=== PATIENT | female | born 1995 | race Caucasian/White ===

== ENCOUNTER 2019-11-26 10:41 | Emergency (ER) | payer OTHER, SELFPAY ==
--- NOTE | ~2019-11-26 | XR_ITS ---
EXAMINATION: XR chest 1V portable DATE: 11/26/2019 12:11 INDICATION: Cough, shortness of breath and sore throat TECHNIQUE: frontal and lateral views of the chest were obtained. COMPARISON: Chest radiograph dated 06/22/2015 FINDINGS: The lungs remain clear with no focal airspace opacities, pulmonary edema, pleural effusion or pneumot horax. The cardiomediastinal silhouette is normal. Mild upper thoracic levocurvature. IMPRESSION: 1. No acute cardiopulmonary disease. Reviewed, dictated and finalized at location A.
[2019-11-26 11:08] VITALS: BP 125/84; PULSE 110; RESP 16; TEMP 37.7; O2SAT 100
[2019-11-26] MEDS: ACETAMINOPHEN 500 MG TABLET 1000 MG PO (12:32)
[2019-11-26 12:33] VITALS: RESP 20
--- NOTE | 2019-11-26 12:51 | ED.URI ---
HPI - URI/Sore Throat General Chief Complaint: Upper Respiratory Infection <NITIN Dobbins Last Filed: 11/26/19 12:57> Stated Complaint: Cough, SOB, Sore Throat <NITIN Dobbins Last Filed: 11/26/19 12:57> Time Seen by Provider: 11/26/19 11:27 <NITIN Dobbins Last Filed: 11/26/19 12:57> Source: patient <NITIN Dobbins Last Filed: 11/26/19 12:57> Mode of arrival: ambulatory <NITIN Dobbins Last Filed: 11/26/19 12:57> Limitations: no limitations <NITIN Dobbins Last Filed: 11/26/19 12:57> History of Present Illness HPI Narrative: Patient is a 24-year-old female who presents to emergency department with upper respiratory symptoms over the last several days noting that both of her children are also ill patient notes productive cough congestion rhinorrhea and sore throat. Patient notes today she felt more dyspneic with chest tightness. Patient was tested for COVID yesterday but does not have her results. Patient on arrival to emergency department is in the room in no distress. Denies any vomiting diarrhea <NITIN Dobbins Last Filed: 11/26/19 12:57> Related Data Home Medications: Home Medications Medication Instructions Recorded Confirmed albuterol sulfate 2 inh INHALATION Q4H PRN 11/26/19 albuterol sulfate 2.5 mg INHALATION Q4H PRN 11/26/19 azithromycin 250 mg PO DAILY 11/26/19 fluoxetine [Prozac] 20 mg PO DAILY 11/26/19 prednisone 20 mg PO DAILY 11/26/19 <NITIN Dobbins Last Filed: 11/26/19 12:57> Allergies/Adverse Reactions: Allergies Allergy/AdvReac Type Severity Reaction Status Date / Time aspirin Allergy Mild Wheezing Verified 11/26/19 11:15 chlorpheniramine Allergy Mild Hives Verified 11/26/19 11:15 dextromethorphan Allergy Mild Hives Verified 11/26/19 11:15 ibuprofen Allergy Mild Hives Verified 11/26/19 11:15 loratadine Allergy Mild Hives Verified 11/26/19 11:15 montelukast Allergy Mild Hives Verified 11/26/19 11:15 orange (food color) Allergy Mild ORANGE DYE Verified 11/26/19 11:15 pseudoephedrine Allergy Mild Hives Verified 11/26/19 11:15 tetracycline Allergy Mild Hives Verified 11/26/19 11:15 [place] Allergy Mild Hives Uncoded 11/26/19 11:15 <Faizan Cartwright PA-C - Last Filed: 11/26/19 12:57> Review of Systems Review of Systems: All systems reviewed & are unremarkable except as noted in HPI and below <Faizan Cartwright PA-C - Last Filed: 11/26/19 12:57> [facility] Past Medical History Medical History: Medical History (Updated 11/26/19 @ 12:57 by Faizan Cartwright PA-C) Asthma <Faizan Cartwright PA-C - Last Filed: 11/26/19 12:57> Social History Social History: Social History Smoking status: Never smoker <Faizan Cartwright PA-C - Last Filed: 11/26/19 12:57> Exam Narrative: Exam Narrative: GENERAL: Well-appearing, well-nourished, and in no acute distress. HEAD: Normocephalic, atraumatic. EYES: PERRLA and EOMI. ENT: Nares clear, no rhinorrhea or epistaxis. Mucous membranes moist. Oropharynx without tonsillar hypertrophy exudate or other lesions. CHEST: Clear to auscultation. No respiratory distress. No wheezes rales or rhonchi HEART: Regular rate and rhythm. No murmur heard. EXTREMITIES: Normal range of motion. No edema. SKIN: Warm, dry, no rash. NEURO: No focal deficits. Alert and oriented x3. PSYCH: Normal mood and affect. <Faizan Cartwright PA-C - Last Filed: 11/26/19 12:57> Course Course Emergency Course: Patient in the room in no distress resting comfortably no hypoxemia no pneumonia seen on exam COVID testing pending patient advised to continue to rest at home treat herself symptomatically provided with reasons to return <Faizan Cartwright PA-C - Last Filed: 11/26/19 12:57> Vital Signs Vital signs: Vital Signs Temperature 100 F H 11/26/19 11:08 Pulse Rate 110
[2019-11-26 13:30] VITALS: BP 107/77; PULSE 68; RESP 20; TEMP 36.9; O2SAT 99
== END 2019-11-26 13:30 | disposition home or self-care (01) ==
PROVIDERS: Emergency Provider General Practice
DX: J06.9 Acute upper respiratory infection, unspecified (principal); J45.909 Unspecified asthma, uncomplicated
CPT/HCPCS: 71045; 99283; A9270

== ENCOUNTER 2020-10-08 19:06 | Observation (INO) | payer OTHER, SELFPAY ==
[2020-10-08 19:13] VITALS: BP 138/95; PULSE 91
[2020-10-08 19:15] VITALS: BP 133/96; PULSE 80
[2020-10-08 19:25] VITALS: RESP 18; TEMP 36.6; BMI 23.3
[2020-10-08 19:32] VITALS: BP 122/88; PULSE 91
[2020-10-08] MEDS: ACETAMINOPHEN 500 MG TABLET 1000 MG PO (19:58)
--- NOTE | 2020-10-08 20:08 | OBADM ---
This patient, Rachel Johnson, admitted to the OB room OB Post [facility] for observation. Patient/family oriented to hospital policies and general routines including ID bracelet, bed and alarms, visiting hours, pain management, procedures, bathroom and other care routines, personal items, smoking policy, room service/diet, and visiting hours. Patient/Family are encouraged to report perceived risks to care and to ask questions if they do not understand what they are told or what they should do.
[2020-10-08 20:29] LABS: Add Urine Microscopic? YES; Appearance Urine Cloudy (Clear); Bacteria Urine Trace /hpf; Bilirubin Urine Negative (Negative); Blood Urine Negative (Negative); Color Urine Yellow (Yellow); Glucose Urine UA Negative (Negative); Ketones Urine Negative (Negative); Leukocyte Esterase Ur 1+ LEU/UL (Negative); Mucus Urine Rare /lpf; Nitrate Urine Negative (Negative); Protein Urine Negative (Negative); RBC Urine 0-2 /hpf (0-2); Specific Grav Ur 1.014 (1.001-1.035); Squamous Epithelial Cell Urine Few /hpf (Few); Urobilinogen Urine Negative mg/dL (<2.0); WBC Urine 0-3 /hpf
--- NOTE | 2020-10-13 21:20 | PM.OBTRLD ---
OB - Triage/Final Diagnosis Visit Information Date of evaluation: 10/08/20 Reason for evaluation: threatened labor Comments/Additional reasons for admission: I have assessed the risk for this patient, Rachel Johnson, and determined that she would benefit from observation care. Evaluation Laboratory results: Laboratory Tests 10/08/20 20:01 Urine Color Yellow Urine Appearance Cloudy H Urine pH 7.0 Ur Specific [place] 1.014 Urine Protein Negative Urine Glucose (UA) Negative Urine Ketones Negative Ur Blood (Man) Negative Urine Nitrate Negative Urine Bilirubin Negative Urine Urobilinogen Negative Leukocyte Esterase Rfl 1+ H Urine RBC 0-2 Urine WBC 0-3 Ur Squamous Epith Cells Few Urine Bacteria Trace Urine Mucus Rare
== END 2020-10-08 21:01 | disposition home or self-care (01) ==
PROVIDERS: Advanced Practice Midwife; Admitting Provider Obstetrics & Gynecology; Visit Provider Obstetrics & Gynecology
DX: O47.02 False labor before 37 completed weeks of gestation, second trimester (principal); Z3A.21 21 weeks gestation of pregnancy
CPT/HCPCS: 81001; A9270; G0378; G0379

== ENCOUNTER 2020-11-09 13:19 | Observation (INO) | payer OTHER, SELFPAY ==
--- NOTE | ~2020-11-09 | US_ITS ---
US OB limited DATE: 11/09/2020 12:58 INDICATION: Low abdominal pain TECHNIQUE: Real-time imaging and Doppler analysis COMPARISON: None FINDINGS: Live turner intrauterine gestation, fetus in vertex presentation, longitudinal lie, feta l heart rate of 131 bpm. Antral fundal placenta. No abnormal retroplacental fluid collection is identified. Subjectively aakash l amount of amniotic fluid. IMPRESSION: No significant abnormality demonstrated Reviewed, dictated and finalized at Location A. Reviewed, dictated and finalized at location A.
[2020-11-09 13:18] LABS: Add Urine Microscopic? YES; Appearance Urine Cloudy (Clear); Bacteria Urine Trace /hpf; Bilirubin Urine Negative (Negative); Blood Urine Negative (Negative); Color Urine Yellow (Yellow); Glucose Urine UA Negative (Negative); Ketones Urine Negative (Negative); Leukocyte Esterase Ur 3+ LEU/UL (Negative); Mucus Urine Rare /lpf; Nitrate Urine Negative (Negative); Protein Urine Negative (Negative); RBC Urine 0-2 /hpf (0-2); Specific Grav Ur 1.012 (1.001-1.035); Squamous Epithelial Cell Urine Rare /hpf (Few); Urobilinogen Urine Negative mg/dL (<2.0); WBC Urine 0-3 /hpf
[2020-11-09 13:19] VITALS: RESP 18; TEMP 36.7; BMI 24.5
--- NOTE | 2020-11-09 13:43 | OBADM ---
This patient, Rachel Johnson, admitted to the OB room for NST, then changed to observation. Patient oriented to hospital policies and general routines including ID bracelet, bed and alarms, visiting hours, pain management, procedures, bathroom and other care routines, personal items, smoking policy, room service/diet, call light and visiting hours. Patient is encouraged to report perceived risks to care and to ask questions if she does not understand what she is told or what she should do.
--- NOTE | 2020-11-28 10:10 | P.PNOB_ITS ---
OB - Triage/Final Diagnosis Visit Information Comments/Additional reasons for admission: I have assessed the risk for this patient, Rachel Johnson, and determined that she would benefit from observation care. Evaluation Laboratory results: Laboratory Tests 11/09/20 13:04 Urine Color Yellow Urine Appearance Cloudy H Urine pH 7.0 Ur Specific [place] 1.012 Urine Protein Negative Urine Glucose (UA) Negative Urine Ketones Negative Ur Blood (Man) Negative Urine Nitrate Negative Urine Bilirubin Negative Urine Urobilinogen Negative Leukocyte Esterase Rfl 3+ H Urine RBC 0-2 Urine WBC 0-3 Ur Squamous Epith Cells Rare Urine Bacteria Trace Urine Mucus Rare Final Diagnosis (1) Decreased movement: Code(s): O36.8190 - Decreased movements, unspecified trimester, not applicable or unspecified Status: Acute
== END 2020-11-09 13:42 | disposition home or self-care (01) ==
LOC: ANHOBOP 13:51 → ANHOBPP 13:52
PROVIDERS: Advanced Practice Midwife; Admitting Provider Obstetrics & Gynecology; Visit Provider Obstetrics & Gynecology
DX: O36.8120 Decreased fetal movements, second trimester, not applicable or unspecified (principal); Z3A.25 25 weeks gestation of pregnancy
CPT/HCPCS: 59025; 76815; 81001; 87086; 87088; 99199

== ENCOUNTER 2020-11-18 18:03 | Outpatient (CLI) | payer OTHER, SELFPAY ==
[2020-11-18] VITALS (44 sets, daily range): BP systolic 109–123; BP diastolic 70–87; PULSE 92–120; TEMP 36.9; O2SAT 92–100; BMI 24.5
--- NOTE | 2020-11-18 18:42 | PC.NURSE ---
Spoke with Dr. Valdivia- informed of pt admission for headache and dizziness that started this am. pt took tylenol around 1400 with no relief. c/o blurry vision, no right upper quadrant pain. orders received for PIH labs and UA. will call with results when available.
[2020-11-18 19:14] LABS: Basophils Percent Auto 0.2 % (0.2-1.2); Eosinophils Absolute Auto 0.2 K/mm3 (0-0.3); Eosinophils Percent Auto 1.8 % (0-4.4); Hematocrit 29.2 % (37.0-47.0); Immature Granulocyte Absolute 0.06 K/mm3 (0.00-0.031); Immature Granulocyte Percent A 0.5 % (0-0.5); Lymphocytes Absolute Auto 1.91 K/mm3 (0.9-3.2); Lymphocytes Percent Auto 14.9 % (18.3-44.2); Mean Corpuscular HGB Conc 30.8 g/dl (32-36); Mean Corpuscular Hemoglobin 25.9 pg (26-34); Mean Corpuscular Volume 83.9 fl (80-100); Monocytes Percent Auto 7.9 % (2.6-8.5); Neutrophils Absolute Auto 9.6 K/mm3 (1.3-6.7); Neutrophils Percent Auto 74.7 % (45.5-73.1); Platelet Count Result 190 k/mm3 (150-375); Red Blood Count 3.48 M/mm3 (4.2-5.4); Red Cell Distribution Width 13.7 % (11.5-14.5); White Blood Count 12.8 K/mm3 (4.5-10.0)
[2020-11-18 19:24] LABS: Add Urine Microscopic? YES; Appearance Urine Cloudy (Clear); Bacteria Urine Trace /hpf; Bilirubin Urine Negative (Negative); Blood Urine Negative (Negative); Color Urine Yellow (Yellow); Glucose Urine UA Negative (Negative); Ketones Urine Trace mg/dL (Negative); Leukocyte Esterase Ur 2+ LEU/UL (NEGATIVE); Mucus Urine Rare /lpf; Nitrate Urine Negative (Negative); Protein Urine Negative (Negative); RBC Urine 0-2 /hpf (0-2); Specific Grav Ur 1.012 (1.001-1.035); Squamous Epithelial Cell Urine Moderate /hpf (Few); Urobilinogen Urine Negative mg/dL (<2.0)
[2020-11-18 19:27] LABS: Alanine Aminotransferase 8 U/L (4-35); Albumin Level 3.2 g/dL (3.5-5.1); Alkaline Phosphatase 82 U/L (38-126); Anion Gap 7 mmol/L (8-16); Aspartate Amino Transferase 15 U/L (14-36); Bilirubin,Total 0.2 mg/dL (0.2-1.3); Blood Urea Nitrogen 5 mg/dL (7-17); Calcium 8.5 mg/dL (8.4-10.2); Carbon Dioxide 21 mmol/L (22-30); Chloride 104 mmol/L (98-107); Estimated Glomerular Filt Rate > 60; Glucose 84 mg/dL (65-110); Potassium 3.5 mmol/L (3.4-5.0); Sodium 132 mmol/L (137-145); Uric Acid 3.2 mg/dL (2.5-7.5)
[2020-11-18 19:28] LABS: Creatinine Urine 75.6 mg/dL; Total Protein Urine Random 13 mg/dL; Ur Ttl Prot Creatinine Ratio 0.17 mg/mg (0-0.20)
--- NOTE | 2020-11-18 19:45 | PC.NURSE ---
Spoke with Dr. Valdivia- reviewed labs. pt c/o 08/09 frontal TY that is sharp. order received Fiorocet for headache. will monitor and if headache is relieved with medicine pt may d/c home.
--- NOTE | 2020-11-18 21:07 | LDADM ---
This patient, Rachel Johnson, was admitted to [facility] on at 18:03. Plans for labor, pain management and were discussed with patient. Patient/family oriented to hospital policies and general routines including ID bracelet, bed and alarms, visiting hours, pain management, procedures, bathroom and other care routines, personal items, smoking policy, room service/diet and guest tray routines, infant security routines, and visiting hours. Patient/Family are encouraged to report perceived risks to care and to ask questions if they do not understand what they are told or what they should do. See OBIX for further documentation.
== END 2020-11-18 23:09 | disposition home or self-care (01) ==
LOC: ANHOBOP 18:09 → ANHOBPP 21:11 → ANHLDR 11-19 06:37
PROVIDERS: Obstetrics & Gynecology; Referring Provider Advanced Practice Midwife; Visit Provider Advanced Practice Midwife
DX: R42 Dizziness and giddiness (principal)
CPT/HCPCS: 36415; 80053; 81001; 82570; 84156; 84550; 85025; 87086; 99199; A9270

== ENCOUNTER 2020-12-07 11:17 | Outpatient (CLI) | payer OTHER, SELFPAY ==
--- NOTE | ~2020-12-07 | US_ITS ---
EXAMINATION: US OB limited EXAM DATE: 12/07/2020 13:23 INDICATION: , vaginal spotting, check placenta. 3rd trimester. TECHNIQUE: Pelvic obstetrical transabdominal sonogram was performed by a technologist. There are mu ltiple grayscale and Doppler images available for interpretation. Comparison is made to prior examina tion from 11/09/2020. FINDINGS: There is a single fetus identified in vertex presentation with a heart rate of 132 beats pe r minute. The placenta is located in the anterior fundal position. Placental margin to internal cervi lia os is over 10 cm. Along the inferior margin of the placenta there is focal hypoechoic retroplacental region measuring 1 .2 cm in thickness by 2.5 cm in diameter. Appearance is could indicate retroplacental hemorrhage. The re is another smaller anechoic retroplacental region in a different location measuring about 1 cm emy meter, also could be small retroplacental hemorrhage. Venous lakes are in the differential diagnosis. These are not specifically visualized on the prior study. IMPRESSION: 1. 2 small retroplacental regions, possible retroplacental hemorrhages. Venous lakes not excludable. 2. Live gestation, heart rate 132 bpm. I discussed these results with OB nurse caring for patient at 12/07/2020 13:37 CDT. Reviewed, dictated and finalized at location A. IMPRESSION: 1. 2 small retroplacental regions, possible retroplacental hemorrhages. Venous lakes not excludable. 2. Live gestation, heart rate 132 bpm. I discussed these results with OB nurse caring for patient at 12/07/2020 13:37 CD T.
[2020-12-07 11:50] VITALS: BP 120/72; PULSE 100
[2020-12-07 12:01] VITALS: BP 114/70; PULSE 100
[2020-12-07 12:04] LABS: Basophils Percent Auto 0.3 % (0.2-1.2); Eosinophils Absolute Auto 0.2 K/mm3 (0-0.3); Eosinophils Percent Auto 1.7 % (0-4.4); Hematocrit 29.5 % (37.0-47.0); Hemoglobin 9.1 g/dL (12.0-15.0); Immature Granulocyte Absolute 0.09 K/mm3 (0.00-0.031); Immature Granulocyte Percent A 0.8 % (0-0.5); Lymphocytes Absolute Auto 1.71 K/mm3 (0.9-3.2); Lymphocytes Percent Auto 14.5 % (18.3-44.2); Mean Corpuscular HGB Conc 30.8 g/dl (32-36); Mean Corpuscular Hemoglobin 24.7 pg (26-34); Mean Corpuscular Volume 79.9 fl (80-100); Mean Platelet Volume 12.6 fl (7.4-10.4); Monocytes Absolute Auto 0.9 K/mm3 (0.1-0.6); Monocytes Percent Auto 7.6 % (2.6-8.5); Neutrophils Absolute Auto 8.9 K/mm3 (1.3-6.7); Neutrophils Percent Auto 75.1 % (45.5-73.1); Platelet Count Result 198 k/mm3 (150-375); Red Blood Count 3.69 M/mm3 (4.2-5.4); Red Cell Distribution Width 15.1 % (11.5-14.5); White Blood Count 11.8 K/mm3 (4.5-10.0)
[2020-12-07 12:13] LABS: Add Urine Microscopic? YES; Appearance Urine Cloudy (Clear); Bacteria Urine Trace /hpf; Bilirubin Urine Negative (Negative); Blood Urine Negative (Negative); Color Urine Yellow (Yellow); Glucose Urine UA Negative (Negative); Ketones Urine Negative (Negative); Leukocyte Esterase Ur 1+ LEU/UL (NEGATIVE); Mucus Urine Rare /lpf; Nitrate Urine Negative (Negative); Protein Urine Negative (Negative); Specific Grav Ur 1.016 (1.001-1.035); Squamous Epithelial Cell Urine Many /hpf (Few); Urobilinogen Urine Negative mg/dL (<2.0)
[2020-12-07 12:16] VITALS: BP 126/69; PULSE 101
[2020-12-07 12:31] VITALS: BP 121/72; PULSE 94
[2020-12-07 12:35] VITALS: BP 120/72; PULSE 100; RESP 16; TEMP 36.9
[2020-12-07 12:40] LABS: Alanine Aminotransferase 9 U/L (4-35); Albumin Level 3.4 g/dL (3.5-5.1); Alkaline Phosphatase 104 U/L (38-126); Anion Gap 8 mmol/L (8-16); Aspartate Amino Transferase 17 U/L (14-36); Bilirubin,Total 0.3 mg/dL (0.2-1.3); Blood Urea Nitrogen 6 mg/dL (7-17); Calcium 8.9 mg/dL (8.4-10.2); Carbon Dioxide 19 mmol/L (22-30); Chloride 108 mmol/L (98-107); Estimated Glomerular Filt Rate > 60; Glucose 96 mg/dL (65-110); Potassium 3.6 mmol/L (3.4-5.0); Sodium 135 mmol/L (137-145); Uric Acid 4.5 mg/dL (2.5-7.5)
[2020-12-07 12:48] LABS: Total Protein Urine Random 11 mg/dL
--- NOTE | 2020-12-07 13:55 | PCDIET ---
called Charly Sosa CNM with PIH lab result, BP, NST and ultrasound report. made aware for possible retroplacental hemorrhage. okay to discharge with follow up tomorrow in office
== END 2020-12-07 14:00 | disposition home or self-care (01) ==
LOC: ANHOBOP 11:28 → ANHOBPP 11:29
PROVIDERS: Visit Provider Advanced Practice Midwife
DX: O13.9 Gestational [pregnancy-induced] hypertension without significant proteinuria, unspecified trimester (principal); Z3A.00 Weeks of gestation of pregnancy not specified
CPT/HCPCS: 36415; 59025; 76815; 80053; 81001; 82570; 84156; 84550; 85025; 87086; 99199

== ENCOUNTER 2020-12-14 19:55 | Observation (INO) | payer OTHER, SELFPAY ==
[2020-12-14] VITALS (10 sets, daily range): BP systolic 113–138; BP diastolic 70–124; PULSE 95–124; RESP 16–18; TEMP 36.9; BMI 25.6
--- NOTE | 2020-12-14 19:55 | OBADM ---
This patient, Rachel Johnson, admitted to the OB room [facility] Post 113 for observation. Patient/family oriented to hospital policies and general routines including ID bracelet, bed and alarms, visiting hours, pain management, procedures, bathroom and other care routines, personal items, smoking policy, room service/diet, and visiting hours. Patient/Family are encouraged to report perceived risks to care and to ask questions if they do not understand what they are told or what they should do.
[2020-12-14 21:03] LABS: Add Urine Microscopic? YES; Amorphous Sediment Urine Few; Appearance Urine Clear (Clear); Bacteria Urine Trace /hpf; Bilirubin Urine Negative (Negative); Blood Urine Negative (Negative); Color Urine Yellow (Yellow); Glucose Urine UA Negative (Negative); Ketones Urine Negative (Negative); Leukocyte Esterase Ur 2+ LEU/UL (Negative); Mucus Urine Rare /lpf; Nitrate Urine Negative (Negative); Protein Urine 1+ mg/dL (Negative); RBC Urine 0-2 /hpf (0-2); Specific Grav Ur 1.013 (1.001-1.035); Squamous Epithelial Cell Urine Few /hpf (Few); Urobilinogen Urine Negative mg/dL (<2.0); WBC Urine 0-3 /hpf
[2020-12-14] MEDS: ACETAMINOPHEN 500 MG TABLET 1000 MG PO (22:18)
--- NOTE | 2021-01-08 19:46 | P.PNOB_ITS ---
OB - Triage/Final Diagnosis Visit Information Comments/Additional reasons for admission: I have assessed the risk for this patient, Rachel Johnson, and determined that she would benefit from observation care. Evaluation Laboratory results: Laboratory Tests 12/14/20 20:52 Urine Color Yellow Urine Appearance Clear Urine pH 7.0 Ur Specific [place] 1.013 Urine Protein 1+ H Urine Glucose (UA) Negative Urine Ketones Negative Ur Blood (Man) Negative Urine Nitrate Negative Urine Bilirubin Negative Urine Urobilinogen Negative Leukocyte Esterase Rfl 2+ H Urine RBC 0-2 Urine WBC 0-3 Ur Squamous Epith Cells Few Amorphous Sediment Few H Urine Bacteria Trace Urine Mucus Rare Final Diagnosis (1) False labor: Code(s): O47.9 - False labor, unspecified Status: Acute
== END 2020-12-14 22:20 | disposition home or self-care (01) ==
PROVIDERS: Admitting Provider Obstetrics & Gynecology; Visit Provider Obstetrics & Gynecology
DX: O47.9 False labor, unspecified (principal); Z3A.00 Weeks of gestation of pregnancy not specified
CPT/HCPCS: 81001; A9270; G0378; G0379

== ENCOUNTER 2021-01-01 21:44 | Observation (INO) | payer OTHER, SELFPAY ==
[2021-01-01 22:30] VITALS: BP 116/78; PULSE 99; TEMP 36.9
[2021-01-01 22:45] VITALS: BP 119/78; PULSE 101
[2021-01-01 23:00] VITALS: BP 114/85; PULSE 103
[2021-01-01] MEDS: LACTATED RINGERS 1,000 ML 999 ML IV CONT (23:10)
[2021-01-01 23:15] VITALS: BP 121/93; PULSE 111
--- NOTE | 2021-01-01 23:18 | PM.IMHP ---
H&P: HPI History of Present Illness Date/Time: 01/01/21 23:18 Chief Complaint: pt is a 25 y.o. G 4 P2 edc 02/16 at 33.3 weeks with hx of 33 week delivery and hx of severe preeclampsia. c/o abdominal pain started this evening as well as low back pain, constant, does not feel like contractions, accompanied by nausea PMFSH Past Medical History Medical History (Updated 11/28/20 @ 10:10 by Lidya Sosa CNM) Asthma Social History Social History Smoking status: Never smoker Meds Home Medications and Allergies Home Medications Medication Instructions Recorded Confirmed Type albuterol sulfate 2 inh INHALATION Q4H PRN 11/26/19 10/08/20 History albuterol sulfate 2.5 mg INHALATION Q4H PRN 11/26/19 10/08/20 History iron 18 mg PO DAILY 12/14/20 12/14/20 History vit-ferrous sulfat-FA 1 tablet PO QAM 12/14/20 12/14/20 History Allergies Allergy/AdvReac Type Severity Reaction Status Date / Time aspirin Allergy Mild Wheezing Verified 11/26/19 11:15 chlorpheniramine Allergy Mild Hives Verified 11/26/19 11:15 dextromethorphan Allergy Mild Hives Verified 11/26/19 11:15 ibuprofen Allergy Mild Hives Verified 11/26/19 11:15 loratadine Allergy Mild Hives Verified 11/26/19 11:15 montelukast Allergy Mild Hives Verified 11/26/19 11:15 orange (food color) Allergy Mild ORANGE DYE Verified 11/26/19 11:15 pseudoephedrine Allergy Mild Hives Verified 11/26/19 11:15 tetracycline Allergy Mild Hives Verified 11/26/19 11:15 [place] Allergy Mild Hives Uncoded 11/26/19 11:15 Vital Signs Vital Signs - 24 hr 01/01/21 22:30 01/01/21 22:45 01/01/21 23:00 Pulse Rate 99 101 H 103 H Blood Pressure 116/78 119/78 114/85 01/01/21 23:15 Pulse Rate 111 H Blood Pressure 121/93 H
[2021-01-01] MEDS: CYCLOBENZAPRINE HCL 10 MG TABLET PO (23:23)
[2021-01-01 23:26] LABS: Add Urine Microscopic? YES; Appearance Urine Clear (Clear); Bacteria Urine Trace /hpf; Bilirubin Urine Negative (Negative); Blood Urine Negative (Negative); Color Urine Straw (Yellow); Glucose Urine UA Negative (Negative); Ketones Urine Negative (Negative); Leukocyte Esterase Ur Trace LEU/UL (Negative); Nitrate Urine Negative (Negative); Protein Urine Negative (Negative); RBC Urine 0-2 /hpf (0-2); Specific Grav Ur 1.005 (1.001-1.035); Squamous Epithelial Cell Urine Rare /hpf (Few); Urobilinogen Urine Negative mg/dL (<2.0); WBC Urine 0-3 /hpf
[2021-01-01] MEDS: ONDANSETRON INJ 4 MG/2 ML VIAL IV PUSH (23:26)
--- NOTE | 2021-01-01 23:26 | PM.IMHP ---
H&P: HPI History of Present Illness Date/Time: 01/01/21 23:26 Chief Complaint: abdominal and back pain Review of Systems Review of Systems: All systems reviewed & are unremarkable except as noted in HPI and below [facility] Past Medical History Medical History (Updated 11/28/20 @ 10:10 by Lidya Sosa CNM) Asthma Social History Social History Smoking status: Never smoker Meds Home Medications and Allergies Home Medications Medication Instructions Recorded Confirmed Type albuterol sulfate 2 inh INHALATION Q4H PRN 11/26/19 10/08/20 History albuterol sulfate 2.5 mg INHALATION Q4H PRN 11/26/19 10/08/20 History iron 18 mg PO DAILY 12/14/20 12/14/20 History vit-ferrous sulfat-FA 1 tablet PO QAM 12/14/20 12/14/20 History Allergies Allergy/AdvReac Type Severity Reaction Status Date / Time aspirin Allergy Mild Wheezing Verified 11/26/19 11:15 chlorpheniramine Allergy Mild Hives Verified 11/26/19 11:15 dextromethorphan Allergy Mild Hives Verified 11/26/19 11:15 ibuprofen Allergy Mild Hives Verified 11/26/19 11:15 loratadine Allergy Mild Hives Verified 11/26/19 11:15 montelukast Allergy Mild Hives Verified 11/26/19 11:15 orange (food color) Allergy Mild ORANGE DYE Verified 11/26/19 11:15 pseudoephedrine Allergy Mild Hives Verified 11/26/19 11:15 tetracycline Allergy Mild Hives Verified 11/26/19 11:15 [place] Allergy Mild Hives Uncoded 11/26/19 11:15 Vital Signs Vital Signs - 24 hr 01/01/21 22:30 01/01/21 22:45 01/01/21 23:00 Pulse Rate 99 101 H 103 H Blood Pressure 116/78 119/78 114/85 01/01/21 23:15 Pulse Rate 111 H Blood Pressure 121/93 H Exam Const: General: cooperative and healthy appearing : External Female Exam: normal external appearance Speculum Exam - Vagina: normal appearance of the vagina Other: SVE 1-2/50/-3 Skin: General skin exam: normal color Neuro: General: patient oriented x3 Sensory Exam: normal sensation Extrem: General: normal to inspection Right lower extremity: normal to inspection Left lower extremity: normal to inspection Psych: Appearance: grossly normal Affect: normal affect Attitude: cooperative Thought process: Normal thought process present Insight: Good insight present (Psych) Judgement: Good judgement present (Psych) Assessment and Plan Additional Plan 1. back and abdominal pain 2. FHT Reactive, contractions rare plan UA and labs, Flexeril, betamethasone, FFN sent
[2021-01-01 23:27] LABS: Basophils Percent Auto 0.3 % (0.2-1.2); Eosinophils Absolute Auto 0.3 K/mm3 (0-0.3); Eosinophils Percent Auto 2.6 % (0-4.4); Hematocrit 27.2 % (37.0-47.0); Hemoglobin 8.3 g/dL (12.0-15.0); Immature Granulocyte Absolute 0.07 K/mm3 (0.00-0.031); Immature Granulocyte Percent A 0.6 % (0-0.5); Lymphocytes Absolute Auto 2.21 K/mm3 (0.9-3.2); Lymphocytes Percent Auto 20.5 % (18.3-44.2); Mean Corpuscular HGB Conc 30.5 g/dl (32-36); Mean Corpuscular Hemoglobin 22.8 pg (26-34); Mean Corpuscular Volume 74.7 fl (80-100); Mean Platelet Volume 11.3 fl (7.4-10.4); Monocytes Percent Auto 9.3 % (2.6-8.5); Neutrophils Absolute Auto 7.2 K/mm3 (1.3-6.7); Neutrophils Percent Auto 66.7 % (45.5-73.1); Platelet Count Result 226 k/mm3 (150-375); Red Blood Count 3.64 M/mm3 (4.2-5.4); Red Cell Distribution Width 16.3 % (11.5-14.5); White Blood Count 10.8 K/mm3 (4.5-10.0)
[2021-01-01] MEDS: FAMOTIDINE 20 MG/2 ML VIAL IV PUSH (23:27)
[2021-01-01 23:32] VITALS: BP 115/78; PULSE 91
[2021-01-01 23:32] LABS: Alanine Aminotransferase 9 U/L (4-35); Albumin Level 3.3 g/dL (3.5-5.1); Alkaline Phosphatase 140 U/L (38-126); Anion Gap 6 mmol/L (8-16); Aspartate Amino Transferase 17 U/L (14-36); Bilirubin,Total 0.3 mg/dL (0.2-1.3); Blood Urea Nitrogen 7 mg/dL (7-17); Calcium 9.1 mg/dL (8.4-10.2); Carbon Dioxide 21 mmol/L (22-30); Chloride 106 mmol/L (98-107); Estimated Glomerular Filt Rate > 60; Glucose 106 mg/dL (65-110); Potassium 3.6 mmol/L (3.4-5.0); Sodium 133 mmol/L (137-145)
[2021-01-01] MEDS: BETAMETHASONE SOD PHOS/ACETATE 30 MG/5 ML VIAL 12 MG IM (23:32)
[2021-01-01 23:33] LABS: Fetal Fibronectin Negative
[2021-01-01 23:45] VITALS: BP 126/86; PULSE 96
[2021-01-02] VITALS (26 sets, daily range): BP systolic 99–123; BP diastolic 53–84; PULSE 76–107; TEMP 36.7
--- NOTE | 2021-01-02 00:16 | LDADM ---
This patient, Rachel Johnson, was admitted to OB Post 117 on 01/01/21 at 21:44. Plans for labor, pain management and were discussed with patient. Patient/family oriented to hospital policies and general routines including ID bracelet, bed and alarms, visiting hours, pain management, procedures, bathroom and other care routines, personal items, smoking policy, room service/diet and guest tray routines, infant security routines, and visiting hours. Patient/Family are encouraged to report perceived risks to care and to ask questions if they do not understand what they are told or what they should do. See OBIX for further documentation.
[2021-01-02] MEDS: ACETAMINOPHEN 500 MG TABLET 1000 MG PO (00:51)
--- NOTE | 2021-01-02 08:21 | PC.NURSE ---
Updated Ronnell Vela CNM on maternal and assessment throughout the night. Discharge order received.
== END 2021-01-02 08:30 | disposition home or self-care (01) ==
PROVIDERS: Advanced Practice Midwife; Admitting Provider Obstetrics & Gynecology; Visit Provider Obstetrics & Gynecology
DX: O26.893 Other specified pregnancy related conditions, third trimester (principal); R10.9 Unspecified abdominal pain; O99.891 Other specified diseases and conditions complicating pregnancy; M54.9 Dorsalgia, unspecified; O99.513 Diseases of the respiratory system complicating pregnancy, third trimester; J45.909 Unspecified asthma, uncomplicated; Z3A.33 33 weeks gestation of pregnancy; Z79.51 Long term (current) use of inhaled steroids
CPT/HCPCS: 36415; 80053; 81001; 82731; 85025; 96372; 96374; 96375; A9270; G0378; G0379; J0702; J2405; J7120

== ENCOUNTER 2021-01-02 19:38 | Outpatient (CLI) | payer OTHER, SELFPAY ==
[2021-01-02] MEDS: BETAMETHASONE SOD PHOS/ACETATE 30 MG/5 ML VIAL 12 MG IM (19:49)
== END 2021-01-02 19:52 | disposition home or self-care (01) ==
LOC: ANHOBOP 19:43
PROVIDERS: Visit Provider Obstetrics & Gynecology
DX: O36.8990 Maternal care for other specified fetal problems, unspecified trimester, not applicable or unspecified (principal); Z3A.00 Weeks of gestation of pregnancy not specified
CPT/HCPCS: 96372; J0702

== ENCOUNTER 2021-01-03 17:47 | Observation (INO) | payer OTHER, SELFPAY ==
[2021-01-03] VITALS (9 sets, daily range): BP systolic 123–137; BP diastolic 73–86; PULSE 79–97; TEMP 36.8–37.5; BMI 25.7
[2021-01-03] MEDS: ONDANSETRON HCL ODT 4 MG TABLET PO (19:46)
[2021-01-03 20:02] LABS: Basophils Percent Auto 0.1 % (0.2-1.2); Eosinophils Percent Auto 0.1 % (0-4.4); Hemoglobin 8.3 g/dL (12.0-15.0); Immature Granulocyte Absolute 0.36 K/mm3 (0.00-0.031); Immature Granulocyte Percent A 2.2 % (0-0.5); Lymphocytes Percent Auto 9.7 % (18.3-44.2); Mean Corpuscular HGB Conc 29.6 g/dl (32-36); Mean Corpuscular Hemoglobin 22.8 pg (26-34); Mean Corpuscular Volume 76.9 fl (80-100); Mean Platelet Volume 11.8 fl (7.4-10.4); Monocytes Absolute Auto 1.7 K/mm3 (0.1-0.6); Monocytes Percent Auto 10.5 % (2.6-8.5); Neutrophils Absolute Auto 12.9 K/mm3 (1.3-6.7); Neutrophils Percent Auto 77.4 % (45.5-73.1); Nucleated Red Blood Cells Absolute Auto 0.1 K/mm3 (0.0-0.012); Nucleated Red Blood Cells Perc 0.3 % (0.0-0.2); Platelet Count Result 231 k/mm3 (150-375); Red Blood Count 3.64 M/mm3 (4.2-5.4); Red Cell Distribution Width 16.5 % (11.5-14.5); White Blood Count 16.6 K/mm3 (4.5-10.0)
[2021-01-03 20:10] LABS: Add Urine Microscopic? YES; Amorphous Sediment Urine Few; Appearance Urine Cloudy (Clear); Bacteria Urine Trace /hpf; Bilirubin Urine Negative (Negative); Blood Urine Negative (Negative); Color Urine Yellow (Yellow); Glucose Urine UA Negative (Negative); Ketones Urine Negative (Negative); Leukocyte Esterase Ur 1+ LEU/UL (NEGATIVE); Nitrate Urine Negative (Negative); Protein Urine Negative (Negative); RBC Urine 0-2 /hpf (0-2); Specific Grav Ur 1.011 (1.001-1.035); Squamous Epithelial Cell Urine Few /hpf (Few); Urobilinogen Urine Negative mg/dL (<2.0); WBC Urine 0-3 /hpf (0-3)
[2021-01-03 20:13] LABS: Hypochromasia 1+ (NORMAL); Ovalocytes 1+ (NORMAL); Platelet Estimate Adequate (Adequate)
[2021-01-03 20:20] LABS: Alanine Aminotransferase 11 U/L (4-35); Albumin Level 3.5 g/dL (3.5-5.1); Alkaline Phosphatase 156 U/L (38-126); Anion Gap 7 mmol/L (8-16); Aspartate Amino Transferase 19 U/L (14-36); Bilirubin,Total 0.3 mg/dL (0.2-1.3); Blood Urea Nitrogen 6 mg/dL (7-17); Calcium 8.6 mg/dL (8.4-10.2); Carbon Dioxide 23 mmol/L (22-30); Chloride 108 mmol/L (98-107); Estimated Glomerular Filt Rate > 60; Glucose 121 mg/dL (65-110); Potassium 3.8 mmol/L (3.4-5.0); Sodium 138 mmol/L (137-145); Uric Acid 4.6 mg/dL (2.5-7.5)
[2021-01-03 20:34] LABS: Creatinine Urine 59.4 mg/dL; Total Protein Urine Random 23 mg/dL; Ur Ttl Prot Creatinine Ratio 0.39 mg/mg (0-0.20)
--- NOTE | 2021-01-03 21:19 | PC.NURSE ---
jay liao cnm notified, report given, orders received. have pt completed 24 hour urine, jay liao cnm informed pt requesting to go home. orders to offer her to stay overnight, but may d/c home if pt requests.
--- NOTE | 2021-01-03 21:30 | PC.NURSE ---
informed pt of plan of care, pt requesting to be d/c home.
--- NOTE | 2021-01-25 07:51 | PM.OBTRLD ---
OB - Triage/Final Diagnosis Visit Information Comments/Additional reasons for admission: I have assessed the risk for this patient, Rachel Johnson, and determined that she would benefit from observation care. Evaluation Laboratory results: Laboratory Tests 01/03/21 01/03/21 01/03/21 19:53 19:53 19:53 WBC 16.6 H RBC 3.64 L Hgb 8.3 L Hct 28.0 L MCV 76.9 L MCH 22.8 L MCHC 29.6 L RDW 16.5 H Plt Count 231 MPV 11.8 H Immature Gran % (Auto) 2.2 H Neut % (Auto) 77.4 H Lymph % (Auto) 9.7 L [place] % (Auto) 10.5 H Eos % (Auto) 0.1 Baso % (Auto) 0.1 L Lymph # (Auto) 1.60 [place] # (Auto) 1.7 H Eos # (Auto) 0.0 Baso # (Auto) 0.0 Abs Immat Gran (auto) 0.36 H Absolute Neuts (auto) 12.9 H Absolute Nucleated RBC 0.1 H Nucleated RBC % 0.3 H Platelet Estimate Adequate Hypochromasia 1+ Ovalocytes 1+ Sodium Potassium Chloride Carbon Dioxide Anion Gap BUN Creatinine Estim Creat Clear Calc Estimated GFR Glucose Uric Acid Calcium Total Bilirubin AST ALT Alkaline Phosphatase Total Protein Albumin Urine Color Yellow Urine Appearance Cloudy H Urine pH 7.0 Ur Specific [place] 1.011 Urine Protein Negative Urine Glucose (UA) Negative Urine Ketones Negative Ur Blood (Man) Negative Urine Nitrate Negative Urine Bilirubin Negative Urine Urobilinogen Negative Ur Leukocyte Esterase 1+ H Urine RBC 0-2 Urine WBC 0-3 Ur Squamous Epith Cells Few Amorphous Sediment Few H Urine Bacteria Trace U Random Total Protein 23 Urine Creatinine 59.4 Protein/Creat Ratio 2 0.39 H 01/03/21 19:53 WBC RBC Hgb Hct MCV MCH MCHC RDW Plt Count MPV Immature Gran % (Auto) Neut % (Auto) Lymph % (Auto) [place] % (Auto) Eos % (Auto) Baso % (Auto) Lymph # (Auto) [place] # (Auto) Eos # (Auto) Baso # (Auto) Abs Immat Gran (auto) Absolute Neuts (auto) Absolute Nucleated RBC Nucleated RBC % Platelet Estimate Hypochromasia Ovalocytes Sodium 138 Potassium 3.8 Chloride 108 H Carbon Dioxide 23 Anion Gap 7 L BUN 6 L Creatinine 0.70 Estim Creat Clear Calc Not Reportable Estimated GFR > 60 Glucose 121 H Uric Acid 4.6 Calcium 8.6 Total Bilirubin 0.3 AST 19 ALT 11 Alkaline Phosphatase 156 H Total Protein 6.0 L Albumin 3.5 Urine Color Urine Appearance Urine pH Ur Specific [place] Urine Protein Urine Glucose (UA) Urine Ketones Ur Blood (Man) Urine Nitrate Urine Bilirubin Urine Urobilinogen Ur Leukocyte Esterase Urine RBC Urine WBC Ur Squamous Epith Cells Amorphous Sediment Urine Bacteria U Random Total Protein Urine Creatinine Protein/Creat Ratio 2 Final Diagnosis (1) Headache: Code(s): R51.9 - Headache, unspecified Status: Acute
== END 2021-01-03 21:49 | disposition home or self-care (01) ==
PROVIDERS: Admitting Provider Obstetrics & Gynecology; Referring Provider Advanced Practice Midwife; Visit Provider Obstetrics & Gynecology
DX: O99.891 Other specified diseases and conditions complicating pregnancy (principal); R51.9 Headache, unspecified; Z3A.33 33 weeks gestation of pregnancy
CPT/HCPCS: 36415; 80053; 81001; 82570; 84156; 84550; 85025; 87086; 87088; A9270; G0378; G0379

== ENCOUNTER 2021-01-04 07:19 | Inpatient (IN) | payer OTHER, SELFPAY ==
[2021-01-04] VITALS (48 sets, daily range): BP systolic 102–118; BP diastolic 53–79; PULSE 73–110; RESP 16–20; TEMP 36.7–37.6; O2SAT 93–100; BMI 25.6
--- NOTE | 2021-01-04 07:35 | OBADM ---
This patient, Rachel Johnson, admitted to the OB room 113 at 0719 for observation for continued nausea/ vomiting and headache. Patient/family oriented to hospital policies and general routines including ID bracelet, bed and alarms, visiting hours, pain management, procedures, bathroom and other care routines, personal items, smoking policy, room service/diet, and visiting hours. Patient/Family are encouraged to report perceived risks to care and to ask questions if they do not understand what they are told or what they should do.
--- NOTE | 2021-01-04 08:00 | PC.NURSE ---
24 hr urine continues on ice.
--- NOTE | 2021-01-04 08:09 | WPDOBADMIT ---
Obstetrics - Admit Note Admission Note: 25 y/o here with c/o headache, nausea and vomiting. Pt was here last night for h/a which was treated and improved. Pt requested discharge home. After going home headache continued to worsen.Nausea and vomiting started overnight.Previous complicated by hellp with delivery at 33 weeks.Pt recently has been feeling increased fatigue and was due to have anemia panel in the office later today.It is of note that her primary presenting symptom with hellp was a severe headache. VSS Gravid abdomen. No contractions. FHR category 1 Headache rated at a 8-9 Constant nausea. No vomiting since arrival. No v/d, e/p, sinus or cold symptoms.No sob or chest pain. Plan: IV hydration Zorfan for nausea IV Tylenol for headache CBC, CMP, anemia panel, and continue 24 hour urine collection (started last night). Covid test. No known exposure. Discussed pt history and plan of care with Dr Velasco. record reviewed. No pertinent additions to the history and/or any subsequent changes in the physical findings that are not consistent with the expected course of the were found. Additions to the history and/or subsequent changes in the physical findings follow. None.
[2021-01-04] MEDS: DEXTROSE 5%/LACTATED RINGERS 1,000 ML 999 ML IV CONT (09:08)
[2021-01-04] MEDS: ONDANSETRON INJ 4 MG/2 ML VIAL IV PUSH ×2 (09:09→13:42)
[2021-01-04 09:34] LABS: Basophils Percent Auto 0.1 % (0.2-1.2); Eosinophils Percent Auto 0.1 % (0-4.4); Hematocrit 25.6 % (37.0-47.0); Hemoglobin 7.5 g/dL (12.0-15.0); Immature Granulocyte Absolute 0.22 K/mm3 (0.00-0.031); Immature Granulocyte Percent A 1.4 % (0-0.5); Lymphocytes Absolute Auto 1.82 K/mm3 (0.9-3.2); Lymphocytes Percent Auto 11.4 % (18.3-44.2); Mean Corpuscular HGB Conc 29.3 g/dl (32-36); Mean Corpuscular Hemoglobin 22.4 pg (26-34); Mean Corpuscular Volume 76.4 fl (80-100); Monocytes Absolute Auto 1.8 K/mm3 (0.1-0.6); Neutrophils Absolute Auto 12.1 K/mm3 (1.3-6.7); Nucleated Red Blood Cells Perc 0.2 % (0.0-0.2); Platelet Count Result 248 k/mm3 (150-375); Red Blood Count 3.35 M/mm3 (4.2-5.4); Red Cell Distribution Width 16.5 % (11.5-14.5); White Blood Count 15.9 K/mm3 (4.5-10.0)
[2021-01-04 09:57] LABS: Transferrin 414 mg/dL (206-381)
[2021-01-04 10:08] LABS: Anisocytosis 2+ (NORMAL); Hypochromasia 2+ (NORMAL); Platelet Estimate Adequate (Adequate)
[2021-01-04 10:24] LABS: Iron 13 ug/dL (37-170)
[2021-01-04 10:34] LABS: Percent Iron Saturation 2 % (20-50)
--- NOTE | 2021-01-04 10:34 | PC.NURSE ---
Charly Sosa [facility] informed pt has had no relief from nausea, but headache has come down to a 6 out of 10. Also informed of pt's CBC and Fe results, but the remainder of her labs are still pending. Orders received.
--- NOTE | 2021-01-04 10:52 | PC.NURSE ---
Charly Sosa CNM informed pt c/o headache back up to an 8 out of 10.
[2021-01-04] MEDS: LACTATED RINGERS 1,000 ML 150 ML IV CONT ×2 (10:59→18:24)
[2021-01-04] MEDS: METOCLOPRAMIDE HCL INJ 10 MG/2 ML VIAL IV PUSH ×2 (11:02→18:13)
[2021-01-04] MEDS: diphenhydrAMINE HCl INJ 50 MG/ML VIAL 25 MG IV PUSH ×2 (11:07→18:19)
[2021-01-04] MEDS: IRON SUCROSE COMPLEX 200 MG in SODIUM CHLORIDE 0.9% IV 50 ML 120 MG IVPB (12:40)
--- NOTE | 2021-01-04 12:49 | PC.NURSE ---
Charly Sosa CNM informed that pt's nausea has resolved, but she still rates her headache an 8 out of 10. Orders received.
--- NOTE | 2021-01-04 13:30 | PC.NURSE ---
Pt c/o some slight nausea after eating a popcicle. Will wait to give Flexeril.
[2021-01-04] MEDS: CYCLOBENZAPRINE HCL 5 MG TABLET PO (14:25)
--- NOTE | 2021-01-04 14:25 | PC.NURSE ---
Nausea has decreased again. No improvement in headache from heating pad. Flexeril given. Pt given a jello with PO med.
--- NOTE | 2021-01-04 15:16 | PC.NURSE ---
monitor applied for NST.
--- NOTE | 2021-01-04 16:10 | PC.NURSE ---
Trying ice pack for headache.
--- NOTE | 2021-01-04 16:20 | PC.NURSE ---
Pt's O2 sat was at 100 % when she came back from using the bathroom and has gradually decreased back down to 97 %.
[2021-01-04 19:39] LABS: Estimated CRCL calculation 97 ml/min; Estimated Glomerular Filt Rate > 60
[2021-01-04 20:02] LABS: Ferritin 4.18 ng/mL (6.24-137)
[2021-01-04 20:28] LABS: Folic Acid 5.1 ng/mL (2.76->20)
--- NOTE | 2021-01-04 22:28 | PC.NURSE ---
2224- Called Dr. Velasco-received clarification of orders. morphine 5mg IV x 1 dose. May give to pt only if she feels that she needs it x 1 dose. covid test results still pending.
[2021-01-04] MEDS: MORPHINE SULFATE (*CRX) 2 MG/ML INJ 5 MG IV PUSH (23:28)
[2021-01-05] VITALS (145 sets, daily range): BP systolic 101–134; BP diastolic 63–95; PULSE 81–154; RESP 18; TEMP 36.4–37; O2SAT 86–100
[2021-01-05] MEDS: METOCLOPRAMIDE HCL INJ 10 MG/2 ML VIAL IV PUSH ×4 (00:38→18:58)
[2021-01-05] MEDS: LACTATED RINGERS 1,000 ML 150 ML IV CONT (00:43)
--- NOTE | 2021-01-05 00:46 | PC.NURSE ---
pt states that her pain is now a 8/10 throbbing/pounding headache after morphine IV. PT given reglan as scheduled for nausea.
--- NOTE | 2021-01-05 01:47 | PC.NURSE ---
pt up to restroom. stating that headache is a 8/10 throbbing/pounding headache and she is very nausous. will call to get orders
[2021-01-05] MEDS: diphenhydrAMINE HCl INJ 50 MG/ML VIAL 25 MG IV PUSH ×2 (02:02→12:13)
--- NOTE | 2021-01-05 02:15 | PC.NURSE ---
0207- Called Dr. Velasco- updated on pt status. orders received to obtain infulenza test, tylenol 1000mg IV x1, zofran as scheduled. order also received for morphine 5mg IV x1 if pt wanting more for pain/headache.
[2021-01-05] MEDS: ONDANSETRON INJ 4 MG/2 ML VIAL IV PUSH ×2 (02:38→12:12)
[2021-01-05 03:08] LABS: Collection Time Urine 24 HOURS
[2021-01-05 03:16] LABS: Influenza Control Positive
[2021-01-05 03:36] LABS: Creatinine Urine 50.7 mg/dL; Patient Weight 140 Lbs; Total Protein Urine Random 14 mg/dL
[2021-01-05 03:43] LABS: Creatinine Clearance Urine 151.9 ml/min (75-125); Total Protein Urine 24 Hr 343 mg/24hr (28-141); Total Volume 24 Hour Urine 2450 ml
--- NOTE | 2021-01-05 04:21 | PC.NURSE ---
0400- pt still rating headache 8/10 on pain scale-throbbing with no relief from benadryl or IV tylenol. pt also states that she is still very nauseaous even after zofran.
--- NOTE | 2021-01-05 04:53 | PC.NURSE ---
Dr. Velasco updated with pt Ur Total Protein 24 Hr result. No new orders received at this time.
[2021-01-05 07:19] LABS: EDCOVIDSCREEN Negative (Negative)
--- NOTE | 2021-01-05 07:39 | PM.IMHP ---
H&P: HPI History of Present Illness Date/Time: 01/05/21 07:39 Chief Complaint: persistent TY Narrative: Rachel Johnson is a 25yo at 34.0 who presented yesterday for persistent severe TY. She has a history of HELLP at 33 weeks in last . TY did not respond to IV tylenol, fioricet, morphine, benadryl, reglan. She has had N/V with the TY also. BPs have been normal, but 24 hour urine returned this morning at 340+. CT brain was normal. Review of Systems Review of Systems: All systems reviewed & are unremarkable except as noted in HPI and below PMFSH Past Medical History Medical History (Updated 01/05/21 @ 07:45 by Kamila Velasco MD) Asthma Social History Social History Smoking status: Never smoker Meds Home Medications and Allergies Home Medications Medication Instructions Recorded Confirmed Type albuterol sulfate 2 inh INHALATION Q4H PRN 11/26/19 01/04/21 History vit-ferrous sulfat-FA 1 tablet PO QAM 12/14/20 01/04/21 History acetaminophen [Tylenol Extra 500 mg PO Q6H PRN MDD 4000 mg 01/04/21 01/04/21 History Strength] diphenhydramine HCl [Benadryl] 25 mg PO HS 01/04/21 01/04/21 History ferrous sulfate [Slow Fe] 143 mg PO DAILY 01/04/21 01/04/21 History Allergies Allergy/AdvReac Type Severity Reaction Status Date / Time aspirin Allergy Mild Wheezing Verified 11/26/19 11:15 chlorpheniramine Allergy Mild Hives Verified 11/26/19 11:15 dextromethorphan Allergy Mild Hives Verified 11/26/19 11:15 ibuprofen Allergy Mild Hives Verified 11/26/19 11:15 loratadine Allergy Mild Hives Verified 11/26/19 11:15 montelukast Allergy Mild Hives Verified 11/26/19 11:15 orange (food color) Allergy Mild ORANGE Verified 01/04/21 11:05 DYE=HIVES pseudoephedrine Allergy Mild Hives Verified 11/26/19 11:15 tetracycline Allergy Mild Hives Verified 11/26/19 11:15 [place]pp Allergy Mild Hives Uncoded 11/26/19 11:15 Vital Signs Vital Signs - 24 hr 01/04/21 08:00 01/04/21 08:30 01/04/21 08:56 Temperature Pulse Rate 92 73 73 Respiratory Rate Blood Pressure 118/79 115/72 118/71 Blood Pressure [Left Arm] Pulse Oximetry 95 01/04/21 08:57 01/04/21 10:00 01/04/21 10:01 Temperature 98.6 F Pulse Rate 76 77 Respiratory Rate 20 Blood Pressure 115/75 115/75 Blood Pressure [Left Arm] Pulse Oximetry 96 100 01/04/21 11:08 01/04/21 11:09 01/04/21 12:45 Temperature 98.9 F Pulse Rate 84 89 Respiratory Rate 16 Blood Pressure 117/76 102/53 L Blood Pressure [Left Arm] Pulse Oximetry 99 100 97 01/04/21 12:46 01/04/21 12:47 01/04/21 15:12 Temperature 98.9 F 99.1 F Pulse Rate Respiratory Rate 20 20 Blood Pressure Blood Pressure [Left Arm] Pulse Oximetry 95 97 95 01/04/21 15:13 01/04/21 15:17 01/04/21 15:22 Temperature Pulse Rate 97 Respiratory Rate Blood Pressure 105/61 Blood Pressure [Left Arm] Pulse Oximetry 95 96 01/04/21 15:27 01/04/21 15:30 01/04/21 15:32 Temperature Pulse Rate 90 Respiratory Rate Blood Pressure 111/70 Blood Pressure [Left Arm] Pulse Oximetry 96 95 01/04/21 15:37 01/04/21 15:42 01/04/21 15:45 Temperature Pulse Rate 88 Respiratory Rate Blood Pressure 115/75 Blood Pressure [Left Arm] Pulse Oximetry 95 95 01/04/21 15:47 01/04/21 15:52 01/04/21 15:55 Temperature Pulse Rate 91 Respiratory Rate Blood Pressure Blood Pressure [Left Arm] 115/75 Pulse Oximetry 93 93 01/04/21 15:56 01/04/21 15:57 01/04/21 16:00 Temperature 99.2 F Pulse Rate 89 90 Respiratory Rate 20 Blood Pressure 115/77 114/76 Blood Pressure [Left Arm] Pulse Oximetry 94 94 01/04/21 16:02 01/04/21 16:07 01/04/21 16:12 Temperature Pulse Rate Respiratory Rate Blood Pressure Blood Pressure [Left Arm] Pulse Oximetry 94 93 94 01/04/21 16:17 01/04/21 16:22 01/04/21 18:21 Temperature 99.6 F
[2021-01-05] MEDS: LACTATED RINGERS 1,000 ML 75 ML IV CONT (08:21)
[2021-01-05] MEDS: AMPICILLIN 2 GM/NS 100 ML 2 GM/100 ML BAG IVPB (08:22)
[2021-01-05] MEDS: OXYTOCIN 30 UNITS/NS 500 ML 30 UNITS/500 ML BAG IV CONT (08:23)
[2021-01-05] MEDS: MAGNESIUM SULF 4 GM/WATER100ML 4 GM/100 ML BAG IVPB (08:24)
--- NOTE | 2021-01-05 08:26 | LDADM ---
This patient, Rachel Johnson, was admitted to Labor/Delivery/Recovery 107 on 01/05/21 at 07:33. Plans for labor, pain management and were discussed with patient. Patient/family oriented to hospital policies and general routines including ID bracelet, bed and alarms, visiting hours, pain management, procedures, bathroom and other care routines, personal items, smoking policy, room service/diet and guest tray routines, security routines, and visiting hours. Patient/Family are encouraged to report perceived risks to care and to ask questions if they do not understand what they are told or what they should do. See OBIX for further documentation.
[2021-01-05] MEDS: MAGNESIUM SULF 20GM/WATER500ML 500 ML 50 MG IV CONT ×2 (08:57→22:04)
[2021-01-05 09:07] LABS: Hematocrit 27.1 % (37.0-47.0); Mean Corpuscular HGB Conc 29.5 g/dl (32-36); Mean Corpuscular Hemoglobin 22.5 pg (26-34); Mean Corpuscular Volume 76.3 fl (80-100); Mean Platelet Volume 11.4 fl (7.4-10.4); Platelet Count Result 244 k/mm3 (150-375); Red Blood Count 3.55 M/mm3 (4.2-5.4); Red Cell Distribution Width 16.4 % (11.5-14.5); White Blood Count 12.7 K/mm3 (4.5-10.0)
[2021-01-05 09:21] LABS: Alanine Aminotransferase 9 U/L (4-35); Albumin Level 3.2 g/dL (3.5-5.1); Alkaline Phosphatase 173 U/L (38-126); Anion Gap 5 mmol/L (8-16); Aspartate Amino Transferase 20 U/L (14-36); Bilirubin,Total 0.5 mg/dL (0.2-1.3); Blood Urea Nitrogen 3 mg/dL (7-17); Calcium 7.8 mg/dL (8.4-10.2); Carbon Dioxide 22 mmol/L (22-30); Chloride 108 mmol/L (98-107); Estimated CRCL calculation 114 ml/min; Estimated Glomerular Filt Rate > 60; Glucose 97 mg/dL (65-110); Potassium 3.6 mmol/L (3.4-5.0); Sodium 135 mmol/L (137-145); Uric Acid 3.8 mg/dL (2.5-7.5)
--- NOTE | 2021-01-05 12:12 | PM.OBPNLAB ---
Pain Control Date/time seen: 01/05/21 12:12 SVE /-2 arom moderate amount of clear odorless fluid, anticipate vaginal delivery
--- NOTE | 2021-01-05 12:28 | WPDANESEPPF ---
Anes - Initial Pre Proc Eval Date/Time: 01/05/21 12:28 Surgeon: Kaya Valdivia MD Pre Op Diagnosis: nausea,vomiting,headache Patient Data Age: 25 Gender: F Height: 1.57 m Weight: 63.6 kg Last Vital Signs Temp 36.6 C 01/05/21 11:30 Pulse 105 H 01/05/21 12:16 Resp 18 01/05/21 06:55 BP 112/73 01/05/21 12:16 Pulse Ox 96 01/05/21 12:26 Allergies Allergy/AdvReac Type Severity Reaction Status Date / Time aspirin Allergy Mild Wheezing Verified 11/26/19 11:15 chlorpheniramine Allergy Mild Hives Verified 11/26/19 11:15 dextromethorphan Allergy Mild Hives Verified 11/26/19 11:15 ibuprofen Allergy Mild Hives Verified 11/26/19 11:15 loratadine Allergy Mild Hives Verified 11/26/19 11:15 montelukast Allergy Mild Hives Verified 11/26/19 11:15 orange (food color) Allergy Mild ORANGE Verified 01/04/21 11:05 DYE=HIVES pseudoephedrine Allergy Mild Hives Verified 11/26/19 11:15 tetracycline Allergy Mild Hives Verified 11/26/19 11:15 [place] Allergy Mild Hives Uncoded 11/26/19 11:15 Home Medications Medication Instructions Recorded Confirmed Type albuterol sulfate 2 inh INHALATION Q4H PRN 11/26/19 01/04/21 History vit-ferrous sulfat-FA 1 tablet PO QAM 12/14/20 01/04/21 History acetaminophen [Tylenol Extra 500 mg PO Q6H PRN MDD 4000 mg 01/04/21 01/04/21 History Strength] diphenhydramine HCl [Benadryl] 25 mg PO HS 01/04/21 01/04/21 History ferrous sulfate [Slow Fe] 143 mg PO DAILY 01/04/21 01/04/21 History Laboratory Tests 01/04/21 01/04/21 01/04/21 08:39 08:39 08:39 WBC RBC Hgb Hct MCV MCH MCHC RDW Plt Count MPV Sodium Potassium Chloride Carbon Dioxide Anion Gap BUN Creatinine Estim Creat Clear Calc Estimated GFR Glucose Uric Acid Calcium Ferritin 4.18 ng/mL L ng/mL (6.24-137) Total Bilirubin AST ALT Alkaline Phosphatase Total Protein Albumin Vitamin B12 239.0 pg/mL pg/mL (239-931) Folate 5.1 ng/mL ng/mL (2.76->20) U Random Total Protein Ur 24 Hour Volume Urine Creatinine Creatinine Clearance Ur Total Protein 24 Hr RPR Influenza Types A,B Ag SARS-CoV-2 IgG/IgM Ag?Rapid Blood Type Antibody Screen 01/04/21 01/04/21 01/05/21 08:39 21:30 02:41 WBC RBC Hgb Hct MCV MCH MCHC RDW Plt Count MPV Sodium Potassium Chloride Carbon Dioxide Anion Gap BUN Creatinine 0.60 mg/dL L mg/dL (0.7-1.0) Estim Creat Clear Calc 97 ml/min ml/min Estimated GFR > 60 (59 - ) Glucose Uric Acid Calcium Ferritin Total Bilirubin AST ALT Alkaline Phosphatase Total Protein Albumin Vitamin B12 Folate U Random Total Protein 14 mg/dL mg/dL Ur 24 Hour Volume 2450 ml ml Urine Creatinine 50.7 mg/dL mg/dL Creatinine Clearance 151.9 ml/min H ml/min (75-125) Ur Total Protein 24 Hr 343 mg/24hr H mg/24hr (28-141) RPR Influenza Types A,B Ag Negative (Negative) SARS-CoV-2 IgG/IgM Ag?Rapid Blood Type Antibody Screen 01/05/21 01/05/21 01/05/21 06:50 08:44 08:44 WBC RBC Hgb Hct MCV
[2021-01-05] MEDS: AMPICILLIN 1 GM/NS 50 ML 1 GM/50 ML BAG IVPB (12:30)
[2021-01-05] MEDS: IRON SUCROSE COMPLEX 200 MG in SODIUM CHLORIDE 0.9% IV 50 ML 120 MG IVPB (13:19)
[2021-01-05 13:50] LABS: Rapid Plasma Reagin Non-Reactive (NonReactive)
--- NOTE | 2021-01-05 15:35 | PM.OBPRVD ---
OB - Delivery Note Procedure Delivery date: 01/05/21 Procedure: vaginal delivery events: Pre-Eclampsia Induction method: AROM and per pitocin protocol Delivery monitor: external FHT, external uterine and internal uterine Route of delivery: Episiotomy description: None Laceration Description: None Specimen: Yes Quantitative Blood Loss (ml): 98 Anesthesia type: Epidural Disposition: floor [place] Baby Date of : 01/05/21 Time of : 15:24 Weeks of gestation at delivery: 34 Infant gender: Male Weight (pounds): 5 Weight (ounces): 12 presentation: vertex position: Left Occiput Anterior Placenta delivery description: Manual Removal cord vessel description: 3 Vessels and Clamped/Cut score one minute: 9 score five minutes: 9 Narrative: functional mental disability teacher at due to [place], mother and baby in stable condition, plan magnesium sulfate 24 hours post delivery.
--- NOTE | 2021-01-05 17:03 | ECG_ITS ---
Measurements Intervals [place] Rate: 103 P: 52 [place]: 127 QRS: 34 QRSD: 95 T: 5 QT: 362 QTc: 475 Interpretive Statements SINUS TACHYCARDIA BASELINE ARTIFACT- II, III, AVR, AVL, AVF, V1-V6 BORDERLINE ECG Electronically Signed On 01-05-2021 19:24:34 CDT by Jacinto Petersen D.O.
[2021-01-05 17:29] LABS: Magnesium 5.3 mg/dL (1.6-2.3)
[2021-01-05] MEDS: HYDROcodone/acetaminophen (*CRX) 5-325 MG TABLET 1 TAB PO (17:32)
[2021-01-05 18:04] LABS: SARS-CoV-2 RNA PCR Negative
--- NOTE | 2021-01-05 18:35 | OBPPTRN ---
Patient transferred to post room #286 via wheelchair. Support person present. Oriented to unit, room, information board, rooming in, admission packet and security measures. Patient verbalizes understanding.
[2021-01-05] MEDS: LORazepam (*CRX) 0.5 MG TABLET PO (22:03)
[2021-01-05] MEDS: FLUoxetine HCL 10 MG CAPSULE PO (22:03)
[2021-01-05] MEDS: POLYSACCHARIDE IRON COMPLEX 150 MG CAPSULE PO (22:03)
[2021-01-05] MEDS: BENZOCAINE 20% AER SPR (*SP) 56 GM CAN 1 SPRAY TOPICAL (22:04)
[2021-01-05] MEDS: WITCH HAZEL 40 PADS 1 PAD TOPICAL (22:04)
[2021-01-06] VITALS (8 sets, daily range): BP systolic 110–126; BP diastolic 76–97; PULSE 73–88; RESP 16–18; TEMP 36.6–37.1; O2SAT 97–98
[2021-01-06] MEDS: ACETAMINOPHEN 325 MG TABLET 650 MG PO (00:28)
[2021-01-06] MEDS: METOCLOPRAMIDE HCL INJ 10 MG/2 ML VIAL IV PUSH (00:28)
[2021-01-06 05:43] LABS: Hematocrit 29.7 % (37.0-47.0)
[2021-01-06] MEDS: LORazepam (*CRX) 0.5 MG TABLET PO (05:58)
[2021-01-06] MEDS: LACTATED RINGERS 1,000 ML 30 ML IV CONT (07:15)
--- NOTE | 2021-01-06 08:00 | PC.NURSE ---
PT introductions made and plan of care discussed per post , pain management, breast/bottle feeding, daily care activities [facility] and infant transferred to [facility]. PT received such instructions per one to one discussion, mom baby care guide and demonstrations. PT and Aunt both recipients of such instructions and no barriers to learning identified at this time. PT verbalized understanding of such care.
--- NOTE | 2021-01-06 08:11 | PM.OBPNVD ---
OB - PN: Subj Subjective Date/time seen: 01/06/21 08:11 Pt feeling better. H/a almost resolved. Chest pain resolved. Pt felt the chest pain was anxiety related and the ativan helped. [place] baby status: doing well OB - PN: Obj Data Labs CBC & Chem 7: 01/06/21 05:04 01/05/21 08:44 Labs: Laboratory Results - last 24 hr 01/04/21 01/05/21 01/05/21 08:39 08:44 08:44 WBC RBC Hgb Hct MCV MCH MCHC RDW Plt Count MPV Sodium Potassium Chloride Carbon Dioxide Anion Gap BUN Creatinine Estim Creat Clear Calc Estimated GFR Glucose Uric Acid Calcium Magnesium Total Bilirubin AST ALT Alkaline Phosphatase Total Protein Albumin RPR Non-reactive SARS-CoV-2 RNA (RT-PCR) Negative Blood Type A Positive Antibody Screen Negative 01/05/21 01/05/21 01/05/21 08:44 08:44 17:06 WBC 12.7 H RBC 3.55 L Hgb 8.0 L Hct 27.1 L MCV 76.3 L MCH 22.5 L MCHC 29.5 L RDW 16.4 H Plt Count 244 MPV 11.4 H Sodium 135 L Potassium 3.6 Chloride 108 H Carbon Dioxide 22 Anion Gap 5 L BUN 3 L Creatinine 0.50 L Estim Creat Clear Calc 114 Estimated GFR > 60 Glucose 97 Uric Acid 3.8 Calcium 7.8 L Magnesium 5.3 H Total Bilirubin 0.5 AST 20 ALT 9 Alkaline Phosphatase 173 H Total Protein 6.0 L Albumin 3.2 L RPR SARS-CoV-2 RNA (RT-PCR) Blood Type Antibody Screen 01/06/21 05:04 WBC RBC Hgb 9.0 L Hct 29.7 L MCV MCH MCHC RDW Plt Count MPV Sodium Potassium Chloride Carbon Dioxide Anion Gap BUN Creatinine Estim Creat Clear Calc Estimated GFR Glucose Uric Acid Calcium Magnesium Total Bilirubin AST ALT Alkaline Phosphatase Total Protein Albumin RPR SARS-CoV-2 RNA (RT-PCR) Blood Type Antibody Screen OB - PN A/P Plan day: 1 Plan: routine care Comments: Continue magnesium until 24 hours post . Time Spent With Patient Time: Total time spent is greater than 50% in coordination of care (as documented) at patient's floor/unit and/or counseling patient: Time with patient: less than 15 minutes Review of Systems Review of Systems: All systems reviewed & are unremarkable except as noted in HPI and below Exam Narrative: Fundus firm and vaginal flow controlled. No lower ext redness, warmth, or edema. Negative homans. Const: General: comfortable Chest: Breast/axilla inspection: normal inspection of the breasts Resp: Effort & Inspection: normal respiratory effort Cardio: Rate: regular rate GI: GI Palp: Yes Soft to palpation Psych: Appearance: grossly normal Affect: normal affect Attitude: cooperative Thought content: Yes Normal thought content present Judgement: Good judgement present (Psych)
--- NOTE | 2021-01-06 09:11 | P.PNAN_ITS ---
Anes-Prog Note L&D Date/Time: 01/06/21 09:11 Comfortable throughout: labor and delivery Neuraxial method: epidural Epidural/Spinal procedure site: clean & non-tender Neuro status: Neuro function grossly intact. Cardiovascular status: normal Respiratory status: normal Airway patency: baseline Mental status: baseline Post-Op hydration status: normal Vital Signs: Last Vital Signs Temp 37.0 C 01/06/21 04:30 Pulse 87 01/06/21 04:30 Resp 18 01/06/21 04:30 BP 112/76 01/06/21 04:30 Pulse Ox 97 01/06/21 04:30 Pain score (VAS): 0 I/O: Intake & Output 01/05/21 01/06/21 01/06/21 23:59 07:59 15:59 Intake Total 700 Output Total 2014 0894 [facility] [phone] Post-procedural complaints: none Patient feedback: Patient satisfied with anesthetic care.
[2021-01-06] MEDS: SIMETHICONE 80 MG TAB.CHEW PO ×2 (10:32→16:38)
[2021-01-06] MEDS: MULTIVIT/MIN/PREN/FOL AC/IRON TABLET 1 TAB PO (10:33)
[2021-01-06] MEDS: POLYSACCHARIDE IRON COMPLEX 150 MG CAPSULE PO ×2 (10:33→16:38)
[2021-01-06] MEDS: DOCUSATE SODIUM 100 MG CAPSULE PO ×2 (10:33→16:38)
--- NOTE | 2021-01-06 12:25 | PC.NURSE ---
DCFS contacted Care Coordination. DCFS will be taking and placing baby and mother knows. Mom left the floor over 1 1/2 hours ago and has not returned. Mom unaware of initiating phototherapy as she has been off the floor
[2021-01-06] MEDS: LANOLIN (LANSINOH) 7.5 GM CREAM 1 APPLIC TOPICAL (12:49)
--- NOTE | 2021-01-06 14:20 | PC.NURSE ---
Consult with pt., mother wishes to pump due to transfer. Discussed establishing in the may be more difficult due to their immaturity, may be less alert, have less stamina, and have greater difficulty with latch, suck, and swallow. Infant?s feeding may impact mother?s milk supply, pumping may need to continued until milk supply is well established and is able to effective without supplementation. Breast pump provided due to mother's wishes. Instructions given on breast pump care and usage, pumping schedule, nipple care, and collection and storage of breast milk. Encouraged fwyl-in-bhmr when infant is able, breast massage and manual expression to stimulate supply. Assessed patient for correct flange size, placement and draw. Patient verbalizes and demonstrates understanding of instructions. Discussed colostrum vs milk supply and mother may not see more than a few drops the first few days, milk should transition in by day 3 and she may see more volume pumped per session.
[2021-01-06] MEDS: FLUoxetine HCL 10 MG CAPSULE PO (23:10)
[2021-01-07 04:00] VITALS: BP 126/89; PULSE 52; RESP 16; TEMP 36.6
[2021-01-07] MEDS: ACETAMINOPHEN 325 MG TABLET 650 MG PO (04:05)
--- NOTE | 2021-01-07 07:23 | PM.OBPNVD ---
OB - PN: Subj Subjective Date/time seen: 01/07/21 07:23 Patient comments: no complaints, pain well controlled and tolerating diet OB - PN: Obj Data Labs CBC & Chem 7: 01/06/21 05:04 01/05/21 08:44 OB - PN A/P Plan day: 2 Plan: routine care and discharge home Comments: BP's are stable. Time Spent With Patient Time: Total time spent is greater than 50% in coordination of care (as documented) at patient's floor/unit and/or counseling patient: Exam Const: General: comfortable and no acute distress Resp: Effort & Inspection: normal respiratory effort Auscultation: no rales, no rhonchi and no wheezes Cardio: Rate: regular rate Heart sounds: no click, no murmurs and no rubs GI: GI Palp: Yes Soft to palpation and No Tenderness to palpation present (GI) Auscultation: normal bowel sounds Extrem: General: normal to inspection, no pedal edema and no calf tenderness
--- NOTE | 2021-01-07 07:25 | PM.OBDSVD ---
DS: Admitting Diagnosis Discharge Date 01/07/21 Admitting Diagnosis preeclampsia DS: Discharge Diagnosis Discharge Diagnosis (1) Severe pre-eclampsia: Code(s): O14.10 - Severe pre-eclampsia, unspecified trimester Status: Acute OB - DS: Summary OB Procedures : NST and Ultrasound OB Procedures Intrapartum: Spontaneous Vag Delivery OB Procedures: : None Peripartum Data Delivery Method: Natural Vaginal Time Spent with Patient Time attestation: Total time spent providing and/or coordinating discharge services: DS: Data Data Completed and Pending Pending studies at discharge: Pending at discharge 01/05/21 16:18 Surgical [PTH] Routine Discharge Plan Discharge Discharging Clinician: Kaya Valdivia Patient Disposition: Home, Self-Care Activity: pelvic rest Diet: regular Discharge Instructions: Education: Mom and Baby Guide Given to: Mother Follow-Up: Call your delivering provider's office for an appointment to be seen in: 1 Week Mom and baby should come to the [facility] for the follow-up appointment. Appointment Date/Time: January 08, 2021 at 10:00 am What to expect at your follow-up visit: Blood Pressure Check Physical Assessment Call [phone] if you are unable to keep your appointment time. BREAST CARE: * Wear a snug supportive bra. * For engorgement discomfort: Breast Feeding: * Apply warm moist washcloths * Express milk as needed to relieve engorgement * Wear loose clothing Bottle Feeding: * May apply ice packs * For sore nipples: * Identify correct latch-on * Apply warm moist washcloths before and after nursing * Air dry nipples after nursing * May apply Lansinoh cream to nipples EPISIOTOMY/PERINEAL CARE: * Until bleeding stops, use your abby bottle after urinating * Change your pad frequently throughout the day * You may take sitz baths several times a day (fill your bathtub with warm water and soak for 20 minutes.) Do NOT bathe in the water * No tub baths until seen by your physician - You may shower ACTIVITY: * Rest as much as possible. * Do not exercise or lift anything heavier than your baby (such as laundry or other children.) * Avoid stairs or driving as much as possible. * Do not put anything into the vagina. No douching, tampons, or sexual activity until seen by physician. NOTIFY PHYSICIAN IF YOU HAVE ANY QUESTIONS OR IF ANY OF THE FOLLOWING SYMPTOMS OCCUR: * If your episiotomy or incision becomes red, swollen, or more painful than what you have experienced in the hospital. * If your vaginal bleeding becomes foul smelling. * If your vaginal bleeding becomes more heavy than a period or if your bleeding changes from pink to bright red. However, you may pass an occasional walnut-sized clot once or twice for the first week . * If you experience a sharp, shooting pain in your calves. * If you discover a hard, reddened area on your breast or if you experience flu-like symptoms. DIET: * Eat regular, well-balanced meals. * Drink plenty of fluids daily. If , drink to thirst. Patient Instructions: Antibiotic Form, Vaginal Delivery (DC) Stand Alone Forms: General Discharge Information Follow-up/Referrals: Kaya Valdivia MD [Physician] - Discharge Medications: Continued vit-ferrous sulfat-FA 27 mg iron- 0.8 mg Tablet 1 tablet PO QAM RF: 0 albuterol sulfate 90 mcg/actuation HFA aerosol inhaler 2 inh INHALATION Q4H PRN (Reason: Shortness Of Breath) RF: 0 acetaminophen [Tylenol Extra Strength] 500 mg Tablet 500 mg PO Q6H MDD 4000 mg PRN (Reason: Pain or Fever) RF: 0 diphenhydramine HCl [Benadryl] 25 mg Capsule 25 mg PO HS RF: 0 Slow Fe 47.5 mg iron Tablet Extended Release 143 mg PO DAILY RF: 0 Date of admission: 01/05/21 07:33 Primary Care Provider:
[2021-01-07] MEDS: POLYSACCHARIDE IRON COMPLEX 150 MG CAPSULE PO (07:38)
[2021-01-07] MEDS: WITCH HAZEL 40 PADS 1 PAD TOPICAL (07:40)
[2021-01-07] MEDS: BENZOCAINE 20% AER SPR (*SP) 56 GM CAN 1 SPRAY TOPICAL (07:40)
[2021-01-07] MEDS: DOCUSATE SODIUM 100 MG CAPSULE PO (07:40)
[2021-01-07] MEDS: LANOLIN (LANSINOH) 7.5 GM CREAM 1 APPLIC TOPICAL (07:40)
[2021-01-07] MEDS: MULTIVIT/MIN/PREN/FOL AC/IRON TABLET 1 TAB PO (07:40)
[2021-01-07] MEDS: TETANUS,DIPHTHERIA,AC PERTUSSIS ADULT (0.5 ML) BOOSTRIX IM (07:41)
[2021-01-07 09:22] VITALS: BP 119/74; PULSE 52; PULSE 57; RESP 16; RESP 20; TEMP 37.1; O2SAT 96; O2SAT 97
[2021-01-08 07:15] LABS: Red Blood Cell Folate 926 ng/mL RBC (>280)
== END 2021-01-07 08:00 | disposition home or self-care (01) | DRG 560 ==
LOC: ANHOBPP 01-05 07:36 → ANHLDR 01-05 07:41 → ANHOB2 01-05 19:05
PROVIDERS: Advanced Practice Midwife; Admitting Provider Obstetrics & Gynecology; Visit Provider Obstetrics & Gynecology
DX: O14.14 Severe pre-eclampsia complicating childbirth (principal); Z37.0 Single live birth; Z3A.34 34 weeks gestation of pregnancy; O99.02 Anemia complicating childbirth; D64.9 Anemia, unspecified; O99.52 Diseases of the respiratory system complicating childbirth; J45.909 Unspecified asthma, uncomplicated
CPT/HCPCS: 36415; 59025; 80053; 81050; 82565; 82575; 82607; 82728; 82746; 82747; 83540; 83550; 83735; 84156; 84466; 84550; 85014; 85018; 85025; 85027; 86592; 86850; 86900; 86901; 87426; 87804; 90715; 93005; A9270; C9803; J0131; J0290; J1200; J1756; J2270; J2405; J2590; J2765; J2795; J3475; J7120; J7121; U0003; U0005